=== PATIENT | female | born 1945 | race Caucasian/White ===

== ENCOUNTER 2023-02-17 17:35 | Inpatient (IN) | payer OTHER ==
[~2023-02-17] VITALS: Ht 154.9 cm; Wt 45.4 kg
[2023-02-17] MEDS: D5W 1,000 ML IV SCH (07:45)
[~2023-02-17 17:35] MED LIST: GLIPIZIDE; LOP600 PO
[2023-02-17 17:58] VITALS: BP_SYST 101; PULSE 108; RESP 20; TEMP 97.2; O2SAT 89
[2023-02-17] MEDS ORDERED: NACL 0.9% 1,000 ML IV ONE (18:15)
[2023-02-17] MEDS ORDERED: methylPREDNISolone SOD SUCC/PF 62.5 MG/ML VIAL IVP ONE (18:15)
[2023-02-17 19:25] LABS: MEAN CORPUSCULAR HGB CONC 31 % (32-36)
[2023-02-17 19:28] LABS: ALANINE AMINOTRANSFERASE 14 U/L (12-78); ALBUMIN 2.7 g/dL (3.4-4.8); ANION GAP 17 (5-15); ASPARTATE AMINOTRANSFERASE 10 U/L (10-37); CALCIUM 8.7 mg/dL (8.4-11.0); CARBON DIOXIDE 23 mmol/L (23-29); CREATININE 2.04 mg/dL (0.55-1.30); GLUCOSE 338 mg/dL (74-106); POTASSIUM 3.1 mmol/L (3.5-5.1); TOTAL BILIRUBIN 0.4 mg/dL (0.0-1.0); TOTAL PROTEIN, SERUM 7.2 g/dL (6.4-8.3); UREA NITROGEN, BLOOD 87 mg/dL (8-21)
[2023-02-17 19:33] LABS: CHLORIDE 127 mmol/L (98-107); SODIUM SERUM 167 mmol/L (136-145)
[2023-02-17 19:35] LABS: HEMATOCRIT 41.9 % (36-48); HEMOGLOBIN 13.1 g/dL (12.0-16.0); MEAN CORPUSCULAR HEMOGLOBIN 32 pg (27-31); MEAN CORPUSCULAR VOLUME 104 fL (79.0-98.0); PLATELET COUNT (AUTO) 125 K/uL (130-430); RED BLOOD CELL COUNT(AUTO) 4.03 MIL/uL (4.2-6.2); RED CELL DISTRIBUTION WIDTH 17.9 % (9.0-15.0); WHITE BLOOD COUNT (AUTO) 18.5 K/uL (4.8-10.8)
[2023-02-17] MEDS ORDERED: D5/0.45 NS 1,000 ML IV ONE (19:45)
[2023-02-17] MEDS ORDERED: cefTRIAXone 1 GM VIAL ONE (19:59)
[2023-02-17] MEDS ORDERED: cefTRIAXone 1 GM in D5W 50 ML IV ONE (20:00)
[2023-02-17 21:26] LABS: BILIRUBIN,URINE NEGATIVE (NEGATIVE); BLOOD, URINE NEGATIVE (NEGATIVE); CLARITY/URINE Slightly Cloudy (CLEAR); COLOR,URINE YELLOW (YELLOW); GLUCOSE,URINE NEGATIVE (NEGATIVE); KETONES,URINE NEGATIVE (NEGATIVE); LEUKOCYTE ESTERASE ,URINE NEGATIVE (NEGATIVE); NITRITE, URINE NEGATIVE (NEGATIVE); PROTEIN URINE 1+ (NEGATIVE); UROBILINOGEN,URINE 0.2 (0.2-1.0)
[2023-02-17 21:40] LABS: BACTERIA,URINE MODERATE /HPF (None Seen); RBC,URINE 0-3 /HPF (0-3)
[2023-02-17 21:41] LABS: CALCIUM OXALATE CRYSTALS,UR 0-10 /HPF (None Seen); COARSE GRANULAR CASTS,URINE 0-10 /LPF (None Seen); MUCUS,URINE 1+ /LPF (None Seen)
[2023-02-17 21:54] LABS: BAND % (MANUAL) 27 % (0-6); BASOPHILS % (MANUAL) 0 % (0-2); EOSINOPHILS % (MANUAL) 0 % (0-7); LYMPHOCYTES % (MANUAL) 6 % (20-46); MONOCYTES % (MANUAL) 4 % (0-11)
[2023-02-17 21:55] LABS: ANISOCYTOSIS 1+; OVALOCYTES FEW; PLATELET ESTIMATE DECREASED (ADEQUATE); TEAR DROP CELLS MODERATE
[2023-02-17] MEDS ORDERED: EZET10TA30 PO (21:58)
[2023-02-17] MEDS ORDERED: MIDO5TAB4 PO (21:58)
[2023-02-17] MEDS ORDERED: LEVO50TA8 PO (21:58)
[2023-02-17] MEDS ORDERED: MEMA10TA56 PO (21:58)
[2023-02-17] MEDS ORDERED: GLIM2TAB PO (22:00)
[2023-02-17] MEDS ORDERED: ASA81 PO (22:00)
[2023-02-17] MEDS ORDERED: DONE10TA44 PO (22:01)
[2023-02-18 00:20] VITALS: BP_SYST 100; PULSE 82; RESP 16; TEMP 98.8; O2SAT 92
[2023-02-18] MEDS ORDERED: POTASSIUM CHLORIDE 20 MEQ/PKT PACKET PO ONE (02:45)
[2023-02-18 05:51] VITALS: BP_SYST 103; PULSE 83; RESP 16; TEMP 97.4; O2SAT 100
[2023-02-18 07:00] VITALS: BP_SYST 133; PULSE 83; RESP 18; TEMP 95.8; O2SAT 98
[2023-02-18] MEDS: D5W 1,000 ML IV SCH ×2 (07:45→23:49)
[2023-02-18] MEDS ORDERED: LORazepam 2 MG/ML VIAL IVP PRN (09:15)
[2023-02-18] MEDS ORDERED: ASPIRIN 81 MG TAB.CHEW PO ONE (09:15)
[2023-02-18] MEDS ORDERED: EZETIMIBE 10 MG TABLET PO ONE (09:15)
[2023-02-18] MEDS ORDERED: GLIMEPIRIDE 2 MG TABLET PO ONE (09:15)
[2023-02-18] MEDS ORDERED: GEMFIBROZIL 600 MG TABLET (LOPID) PO ONE (09:15)
[2023-02-18] MEDS ORDERED: ACETAMINOPHEN 325 MG TABLET PO PRN ×2 (09:15→10:00)
[2023-02-18] MEDS ORDERED: LEVOTHYROXINE SODIUM 0.05 MG TABLET PO ONE (09:15)
[2023-02-18] MEDS ORDERED: NALOXONE HCL 0.4 MG/ML AMP (NARCAN) IVP PRN ×2 (09:15)
[2023-02-18] MEDS ORDERED: HYDROcodone/ACETAMIN 10-325 MG TAB PO PRN (09:15)
[2023-02-18] MEDS ORDERED: ONDANSETRON HCL 4 MG/2 ML VIAL IVP PRN (09:15)
[2023-02-18 09:54] LABS: HEMATOCRIT 41.5 % (36-48); HEMOGLOBIN 12.3 g/dL (12.0-16.0); LYMPHOCYTES # (AUTO) 0.9 K/uL (1.0-5.5); LYMPHOCYTES % (AUTO) 6.5 % (20.5-51.5); MEAN CORPUSCULAR HEMOGLOBIN 32 pg (27-31); MEAN CORPUSCULAR HGB CONC 30 % (32-36); MEAN CORPUSCULAR VOLUME 107 fL (79.0-98.0); MONOCYTES # (AUTO) 0.4 K/uL (0.0-1.0); MONOCYTES % (AUTO) 2.7 % (1.7-9.3); NEUTROPHILS # (AUTO) 12.7 K/uL (1.8-7.7); NEUTROPHILS % (AUTO) 90.8 % (40.0-70.0); PLATELET COUNT (AUTO) 107 K/uL (130-430); RED BLOOD CELL COUNT(AUTO) 3.88 MIL/uL (4.2-6.2)
[2023-02-18 09:59] LABS: RED CELL DISTRIBUTION WIDTH 19.1 % (9.0-15.0)
[2023-02-18 10:09] LABS: ALANINE AMINOTRANSFERASE 12 U/L (12-78); ALBUMIN 2.5 g/dL (3.4-4.8); ANION GAP 12 (5-15); ASPARTATE AMINOTRANSFERASE 8 U/L (10-37); CALCIUM 8.5 mg/dL (8.4-11.0); CARBON DIOXIDE 25 mmol/L (23-29); CREATININE 1.66 mg/dL (0.55-1.30); POTASSIUM 4.2 mmol/L (3.5-5.1); TOTAL BILIRUBIN 0.3 mg/dL (0.0-1.0); UREA NITROGEN, BLOOD 91 mg/dL (8-21)
[2023-02-18 10:32] LABS: SODIUM SERUM 167 mmol/L (136-145)
[2023-02-18 10:33] LABS: CHLORIDE 130 mmol/L (98-107); GLUCOSE 475 mg/dL (74-106)
[2023-02-18] MEDS ORDERED: ALBUTEROL SULFATE 0.083% 2.5 MG/3 ML VIAL.NEB INH SCH (11:00)
[2023-02-18 11:14] VITALS: PULSE 75; O2SAT 95
[2023-02-18] MEDS: IPRATROPIUM BROM 0.5 MG/2.5 ML VIAL.NEB (ATROVENT) INH SCH ×3 (11:15→23:00)
[2023-02-18] MEDS ORDERED: LEVOFLOXACIN 250 MG/D5W 50 ML IV SCH (12:00)
[2023-02-18] MEDS: INSULIN REGULAR, HUMAN 100 UNITS/ML, 3 ML VIAL (humuLIN R) SUBCUT PRN ×3 (14:49→22:49)
[2023-02-18] MEDS: MIDODRINE HCL 5 MG TABLET (PROAMATINE) PO SCH ×2 (15:21→22:45)
[2023-02-18] MEDS: CEFEPIME 2 GM in D5W 100 ML IV SCH (15:32)
[2023-02-18] MEDS: ALBUTEROL SULFATE 0.083% 2.5 MG/3 ML VIAL.NEB INH SCH (19:47)
[2023-02-18 20:00] VITALS: BP_SYST 107; PULSE 88; RESP 18; TEMP 97.7; O2SAT 96; O2SAT 98
[2023-02-18 20:19] VITALS: O2SAT 96
[2023-02-18] MEDS: DONEPEZIL HCL 5 MG TABLET (ARICEPT) PO SCH (22:44)
[2023-02-18] MEDS: MEMANTINE HCL 5 MG TABLET PO SCH (22:45)
[2023-02-19] VITALS (9 sets, daily range): BP systolic 104–133; PULSE 89–110; RESP 16–20; TEMP 96.3–98.7; O2SAT 85–95
[2023-02-19] MEDS: ALBUTEROL SULFATE 0.083% 2.5 MG/3 ML VIAL.NEB INH SCH ×4 (01:44→20:40)
[2023-02-19 06:15] LABS: BASOPHILS % (AUTO) 0.2 % (0.0-2.0); HEMATOCRIT 42.7 % (36-48); HEMOGLOBIN 12.4 g/dL (12.0-16.0); LYMPHOCYTES # (AUTO) 2.2 K/uL (1.0-5.5); LYMPHOCYTES % (AUTO) 11.1 % (20.5-51.5); MEAN CORPUSCULAR HEMOGLOBIN 32 pg (27-31); MEAN CORPUSCULAR HGB CONC 29 % (32-36); MEAN CORPUSCULAR VOLUME 109 fL (79.0-98.0); MONOCYTES # (AUTO) 1.1 K/uL (0.0-1.0); MONOCYTES % (AUTO) 5.5 % (1.7-9.3); NEUTROPHILS # (AUTO) 16.5 K/uL (1.8-7.7); NEUTROPHILS % (AUTO) 83.2 % (40.0-70.0); PLATELET COUNT (AUTO) 127 K/uL (130-430); RED BLOOD CELL COUNT(AUTO) 3.92 MIL/uL (4.2-6.2); RED CELL DISTRIBUTION WIDTH 19.4 % (9.0-15.0); WHITE BLOOD COUNT (AUTO) 19.9 K/uL (4.8-10.8)
[2023-02-19 06:44] LABS: ANION GAP 14 (5-15); CALCIUM 9.1 mg/dL (8.4-11.0); CARBON DIOXIDE 21 mmol/L (23-29); CREATININE 1.37 mg/dL (0.55-1.30); GLUCOSE 151 mg/dL (74-106); PHOSPHORUS 2.9 mg/dL (2.7-4.5); POTASSIUM 4.2 mmol/L (3.5-5.1); UREA NITROGEN, BLOOD 90 mg/dL (8-21)
[2023-02-19] MEDS: IPRATROPIUM BROM 0.5 MG/2.5 ML VIAL.NEB (ATROVENT) INH SCH ×4 (07:28→20:40)
[2023-02-19 07:37] LABS: CHLORIDE 134 mmol/L (98-107); SODIUM SERUM 169 mmol/L (136-145)
[2023-02-19] MEDS ORDERED: ASPIRIN 81 MG TAB.CHEW PO SCH (09:00)
[2023-02-19] MEDS: GEMFIBROZIL 600 MG TABLET (LOPID) PO SCH (11:14)
[2023-02-19] MEDS: MEMANTINE HCL 5 MG TABLET PO SCH ×2 (11:14→22:09)
[2023-02-19] MEDS: LEVOTHYROXINE SODIUM 0.05 MG TABLET PO SCH (11:14)
[2023-02-19] MEDS: ASPIRIN 81 MG TAB.CHEW PO SCH (11:14)
[2023-02-19] MEDS: EZETIMIBE 10 MG TABLET PO SCH (11:14)
[2023-02-19] MEDS: GLIMEPIRIDE 2 MG TABLET PO SCH (11:14)
[2023-02-19] MEDS: MIDODRINE HCL 5 MG TABLET (PROAMATINE) PO SCH ×3 (11:15→22:09)
[2023-02-19] MEDS ORDERED: D5W 500 ML IV ONE (12:00)
[2023-02-19] MEDS: INSULIN REGULAR, HUMAN 100 UNITS/ML, 3 ML VIAL (humuLIN R) SUBCUT PRN (12:22)
[2023-02-19] MEDS: CEFEPIME 2 GM in D5W 100 ML IV SCH (14:11)
[2023-02-19 14:18] LABS: ANION GAP 17 (5-15); CALCIUM 8.8 mg/dL (8.4-11.0); CARBON DIOXIDE 22 mmol/L (23-29); CREATININE 1.57 mg/dL (0.55-1.30); GLUCOSE 332 mg/dL (74-106); POTASSIUM 3.3 mmol/L (3.5-5.1); UREA NITROGEN, BLOOD 86 mg/dL (8-21)
[2023-02-19 14:31] LABS: CHLORIDE 133 mmol/L (98-107); SODIUM SERUM 172 mmol/L (136-145)
[2023-02-19] MEDS ORDERED: INSULIN GLARGINE 100 UNITS/ML, 10 ML VIAL SUBCUT SCH (21:00)
[2023-02-19] MEDS: DONEPEZIL HCL 5 MG TABLET (ARICEPT) PO SCH (22:09)
[2023-02-20] VITALS (9 sets, daily range): BP systolic 101–105; PULSE 80–108; RESP 17–20; TEMP 97–98.3; O2SAT 19–97
[2023-02-20] MEDS: ALBUTEROL SULFATE 0.083% 2.5 MG/3 ML VIAL.NEB INH SCH ×4 (01:48→19:56)
[2023-02-20] MEDS: IPRATROPIUM BROM 0.5 MG/2.5 ML VIAL.NEB (ATROVENT) INH SCH ×4 (01:48→19:56)
[2023-02-20 06:51] LABS: HEMATOCRIT 37.5 % (36-48); HEMOGLOBIN 11.6 g/dL (12.0-16.0); LYMPHOCYTES # (AUTO) 0.6 K/uL (1.0-5.5); LYMPHOCYTES % (AUTO) 3.9 % (20.5-51.5); MEAN CORPUSCULAR HEMOGLOBIN 32 pg (27-31); MEAN CORPUSCULAR HGB CONC 31 % (32-36); MEAN CORPUSCULAR VOLUME 104 fL (79.0-98.0); MONOCYTES # (AUTO) 0.8 K/uL (0.0-1.0); MONOCYTES % (AUTO) 5.4 % (1.7-9.3); NEUTROPHILS # (AUTO) 13.5 K/uL (1.8-7.7); NEUTROPHILS % (AUTO) 90.7 % (40.0-70.0); PLATELET COUNT (AUTO) 99 K/uL (130-430); RED BLOOD CELL COUNT(AUTO) 3.62 MIL/uL (4.2-6.2); RED CELL DISTRIBUTION WIDTH 18.8 % (9.0-15.0)
[2023-02-20] MEDS: INSULIN REGULAR, HUMAN 100 UNITS/ML, 3 ML VIAL (humuLIN R) SUBCUT PRN ×4 (07:20→22:00)
[2023-02-20 08:05] LABS: WHITE BLOOD COUNT (AUTO) 14.8 K/uL (4.8-10.8)
[2023-02-20] MEDS ORDERED: INSULIN GLARGINE 100 UNITS/ML, 10 ML VIAL SUBCUT ONE (08:15)
[2023-02-20] MEDS: MIDODRINE HCL 5 MG TABLET (PROAMATINE) PO SCH (10:35)
[2023-02-20] MEDS: EZETIMIBE 10 MG TABLET PO SCH (10:35)
[2023-02-20] MEDS: GEMFIBROZIL 600 MG TABLET (LOPID) PO SCH (10:35)
[2023-02-20] MEDS: LEVOTHYROXINE SODIUM 0.05 MG TABLET PO SCH (10:35)
[2023-02-20] MEDS: MEMANTINE HCL 5 MG TABLET PO SCH (10:35)
[2023-02-20] MEDS: GLIMEPIRIDE 2 MG TABLET PO SCH (10:36)
[2023-02-20] MEDS: ASPIRIN 81 MG TAB.CHEW PO SCH (10:40)
[2023-02-20] MEDS ORDERED: D10W 1,000 ML IV SCH (12:15)
[2023-02-20] MEDS: D5W 1,000 ML IV SCH (13:10)
[2023-02-20] MEDS: CEFEPIME 2 GM in D5W 100 ML IV SCH (13:29)
[2023-02-20] MEDS ORDERED: ACETAMINOPHEN 325 MG TABLET NG PRN (14:00)
[2023-02-20] MEDS: MIDODRINE HCL 5 MG TABLET (PROAMATINE) NG SCH ×2 (16:13→21:49)
[2023-02-20 18:06] LABS: ANION GAP 11 (5-15); CALCIUM 9.3 mg/dL (8.4-11.0); CARBON DIOXIDE 25 mmol/L (23-29); CREATININE 1.37 mg/dL (0.55-1.30); GLUCOSE 330 mg/dL (74-106); UREA NITROGEN, BLOOD 74 mg/dL (8-21)
[2023-02-20 18:22] LABS: CHLORIDE 130 mmol/L (98-107); SODIUM SERUM 166 mmol/L (136-145)
[2023-02-20] MEDS: DONEPEZIL HCL 5 MG TABLET (ARICEPT) NG SCH (21:49)
[2023-02-20] MEDS: MEMANTINE HCL 5 MG TABLET NG SCH (21:49)
[2023-02-20] MEDS: INSULIN GLARGINE 100 UNITS/ML, 10 ML VIAL SUBCUT SCH (21:56)
[2023-02-21] VITALS (10 sets, daily range): BP systolic 100–118; PULSE 94–104; RESP 17–19; TEMP 96.8–97.9; O2SAT 93–97
[2023-02-21] MEDS: D5W 1,000 ML IV SCH ×2 (01:43→15:25)
[2023-02-21] MEDS: ALBUTEROL SULFATE 0.083% 2.5 MG/3 ML VIAL.NEB INH SCH ×4 (02:08→20:00)
[2023-02-21] MEDS: IPRATROPIUM BROM 0.5 MG/2.5 ML VIAL.NEB (ATROVENT) INH SCH ×4 (02:08→20:00)
[2023-02-21] MEDS: INSULIN REGULAR, HUMAN 100 UNITS/ML, 3 ML VIAL (humuLIN R) SUBCUT PRN ×2 (06:26→13:19)
[2023-02-21 08:09] LABS: BASOPHILS % (AUTO) 0.1 % (0.0-2.0); EOSINOPHILS % (AUTO) 0.2 % (0.0-4.0); HEMATOCRIT 33.1 % (36-48); HEMOGLOBIN 10.4 g/dL (12.0-16.0); LYMPHOCYTES % (AUTO) 7.7 % (20.5-51.5); MEAN CORPUSCULAR HEMOGLOBIN 32 pg (27-31); MEAN CORPUSCULAR HGB CONC 31 % (32-36); MEAN CORPUSCULAR VOLUME 103 fL (79.0-98.0); MONOCYTES # (AUTO) 0.5 K/uL (0.0-1.0); MONOCYTES % (AUTO) 3.8 % (1.7-9.3); NEUTROPHILS # (AUTO) 11.7 K/uL (1.8-7.7); NEUTROPHILS % (AUTO) 88.2 % (40.0-70.0); PLATELET COUNT (AUTO) 73 K/uL (130-430); RED BLOOD CELL COUNT(AUTO) 3.22 MIL/uL (4.2-6.2); RED CELL DISTRIBUTION WIDTH 18.5 % (9.0-15.0); WHITE BLOOD COUNT (AUTO) 13.3 K/uL (4.8-10.8)
[2023-02-21 08:33] LABS: ANION GAP 13 (5-15); CALCIUM 8.8 mg/dL (8.4-11.0); CARBON DIOXIDE 25 mmol/L (23-29); CHLORIDE 119 mmol/L (98-107); CREATININE 1.25 mg/dL (0.55-1.30); GLUCOSE 367 mg/dL (74-106); POTASSIUM 3.2 mmol/L (3.5-5.1); SODIUM SERUM 157 mmol/L (136-145); UREA NITROGEN, BLOOD 58 mg/dL (8-21)
[2023-02-21] MEDS ORDERED: POTASSIUM CHLORIDE 20 MEQ/PKT PACKET PO ONE (09:15)
[2023-02-21] MEDS: INSULIN GLARGINE 100 UNITS/ML, 10 ML VIAL SUBCUT SCH ×2 (09:48→21:00)
[2023-02-21] MEDS: ASPIRIN 81 MG TAB.CHEW NG SCH (09:57)
[2023-02-21] MEDS: EZETIMIBE 10 MG TABLET NG SCH (10:00)
[2023-02-21] MEDS: MIDODRINE HCL 5 MG TABLET (PROAMATINE) NG SCH ×3 (10:01→22:27)
[2023-02-21] MEDS: MEMANTINE HCL 5 MG TABLET NG SCH ×2 (10:02→22:27)
[2023-02-21] MEDS: LEVOTHYROXINE SODIUM 0.05 MG TABLET NG SCH (10:05)
[2023-02-21] MEDS: GLIMEPIRIDE 2 MG TABLET NG SCH (10:06)
[2023-02-21] MEDS: GEMFIBROZIL 600 MG TABLET (LOPID) NG SCH (10:08)
[2023-02-21] MEDS ORDERED: KCL 20 mEq in 100 mL (PREMIX) 100 ML IV SCH (10:30)
[2023-02-21 16:50] LABS: ANION GAP 10 (5-15); CALCIUM 8.9 mg/dL (8.4-11.0); CARBON DIOXIDE 27 mmol/L (23-29); CHLORIDE 119 mmol/L (98-107); CREATININE 1.15 mg/dL (0.55-1.30); GLUCOSE 206 mg/dL (74-106); POTASSIUM 3.8 mmol/L (3.5-5.1); SODIUM SERUM 156 mmol/L (136-145); UREA NITROGEN, BLOOD 51 mg/dL (8-21)
[2023-02-21] MEDS: CEFEPIME 2 GM in D5W 100 ML IV SCH (16:57)
[2023-02-21] MEDS: DONEPEZIL HCL 5 MG TABLET (ARICEPT) NG SCH (22:27)
[2023-02-22] VITALS (10 sets, daily range): BP systolic 92–122; PULSE 67–103; RESP 17–19; TEMP 97.2–98.6; O2SAT 92–97
[2023-02-22] MEDS: ALBUTEROL SULFATE 0.083% 2.5 MG/3 ML VIAL.NEB INH SCH ×4 (01:39→20:57)
[2023-02-22] MEDS: IPRATROPIUM BROM 0.5 MG/2.5 ML VIAL.NEB (ATROVENT) INH SCH ×4 (01:39→20:57)
[2023-02-22] MEDS: INSULIN REGULAR, HUMAN 100 UNITS/ML, 3 ML VIAL (humuLIN R) SUBCUT PRN ×2 (06:10→13:16)
[2023-02-22 06:35] LABS: ERYTHROCYTE SEDIMENTATION RATE 106 MM/HR (0-20)
[2023-02-22 06:39] LABS: BASOPHILS % (AUTO) 0.1 % (0.0-2.0); EOSINOPHILS # (AUTO) 0.1 K/uL (0.0-0.4); EOSINOPHILS % (AUTO) 0.4 % (0.0-4.0); HEMATOCRIT 30.9 % (36-48); HEMOGLOBIN 9.9 g/dL (12.0-16.0); LYMPHOCYTES # (AUTO) 0.9 K/uL (1.0-5.5); MEAN CORPUSCULAR HEMOGLOBIN 32 pg (27-31); MEAN CORPUSCULAR HGB CONC 32 % (32-36); MEAN CORPUSCULAR VOLUME 101 fL (79.0-98.0); MONOCYTES # (AUTO) 0.5 K/uL (0.0-1.0); MONOCYTES % (AUTO) 2.7 % (1.7-9.3); NEUTROPHILS % (AUTO) 91.8 % (40.0-70.0); PLATELET COUNT (AUTO) 61 K/uL (130-430); RED BLOOD CELL COUNT(AUTO) 3.05 MIL/uL (4.2-6.2); WHITE BLOOD COUNT (AUTO) 17.5 K/uL (4.8-10.8)
[2023-02-22 07:10] LABS: ALANINE AMINOTRANSFERASE 14 U/L (12-78); ALBUMIN 1.4 g/dL (3.4-4.8); ANION GAP 8 (5-15); ASPARTATE AMINOTRANSFERASE 17 U/L (10-37); CALCIUM 8.2 mg/dL (8.4-11.0); CARBON DIOXIDE 27 mmol/L (23-29); CHLORIDE 114 mmol/L (98-107); CREATININE 0.97 mg/dL (0.55-1.30); GLUCOSE 206 mg/dL (74-106); PHOSPHORUS 1.7 mg/dL (2.7-4.5); POTASSIUM 3.2 mmol/L (3.5-5.1); SODIUM SERUM 149 mmol/L (136-145); TOTAL BILIRUBIN 0.4 mg/dL (0.0-1.0); TOTAL PROTEIN, SERUM 5.6 g/dL (6.4-8.3); UREA NITROGEN, BLOOD 43 mg/dL (8-21)
[2023-02-22] MEDS ORDERED: POTASSIUM CHLORIDE 20 MEQ/PKT PACKET NG ONE (09:30)
[2023-02-22] MEDS: LEVOTHYROXINE SODIUM 0.05 MG TABLET NG SCH (09:53)
[2023-02-22] MEDS: GEMFIBROZIL 600 MG TABLET (LOPID) NG SCH (09:53)
[2023-02-22] MEDS: ASPIRIN 81 MG TAB.CHEW NG SCH (09:53)
[2023-02-22] MEDS: MEMANTINE HCL 5 MG TABLET NG SCH ×2 (09:54→20:22)
[2023-02-22] MEDS: EZETIMIBE 10 MG TABLET NG SCH (09:54)
[2023-02-22] MEDS: MIDODRINE HCL 5 MG TABLET (PROAMATINE) NG SCH ×3 (09:54→20:22)
[2023-02-22] MEDS: GLIMEPIRIDE 2 MG TABLET NG SCH (09:54)
[2023-02-22] MEDS: INSULIN GLARGINE 100 UNITS/ML, 10 ML VIAL SUBCUT SCH ×2 (10:01→21:08)
[2023-02-22] MEDS ORDERED: K PHOS 30 MM in NS 250 ML IV ONE (10:30)
[2023-02-22] MEDS: FLUCONAZOLE 100 mg/ NS 50 ML IV SCH (13:13)
[2023-02-22] MEDS: CEFEPIME 2 GM in D5W 100 ML IV SCH (14:31)
[2023-02-22 17:39] LABS: ANION GAP 7 (5-15); CALCIUM 7.5 mg/dL (8.4-11.0); CARBON DIOXIDE 27 mmol/L (23-29); CHLORIDE 111 mmol/L (98-107); CREATININE 0.92 mg/dL (0.55-1.30); GLUCOSE 209 mg/dL (74-106); POTASSIUM 4.3 mmol/L (3.5-5.1); SODIUM SERUM 145 mmol/L (136-145); UREA NITROGEN, BLOOD 43 mg/dL (8-21)
[2023-02-22] MEDS: D5W 1,000 ML IV SCH ×2 (18:05→20:24)
[2023-02-22] MEDS: DONEPEZIL HCL 5 MG TABLET (ARICEPT) NG SCH (20:22)
[2023-02-23] VITALS (10 sets, daily range): BP systolic 85–121; PULSE 77–106; RESP 16–20; TEMP 97.3–98.4; O2SAT 91–100
[2023-02-23] MEDS: ALBUTEROL SULFATE 0.083% 2.5 MG/3 ML VIAL.NEB INH SCH ×4 (01:35→20:07)
[2023-02-23] MEDS: IPRATROPIUM BROM 0.5 MG/2.5 ML VIAL.NEB (ATROVENT) INH SCH ×4 (01:35→20:07)
[2023-02-23] MEDS: INSULIN REGULAR, HUMAN 100 UNITS/ML, 3 ML VIAL (humuLIN R) SUBCUT PRN (06:23)
[2023-02-23] MEDS: D5W 1,000 ML IV SCH ×2 (06:26→10:29)
[2023-02-23 07:56] LABS: BASOPHILS % (AUTO) 0.1 % (0.0-2.0); EOSINOPHILS # (AUTO) 0.1 K/uL (0.0-0.4); EOSINOPHILS % (AUTO) 0.5 % (0.0-4.0); HEMATOCRIT 28.8 % (36-48); HEMOGLOBIN 9.2 g/dL (12.0-16.0); LYMPHOCYTES # (AUTO) 0.7 K/uL (1.0-5.5); LYMPHOCYTES % (AUTO) 3.8 % (20.5-51.5); MEAN CORPUSCULAR HEMOGLOBIN 32 pg (27-31); MEAN CORPUSCULAR HGB CONC 32 % (32-36); MEAN CORPUSCULAR VOLUME 101 fL (79.0-98.0); MONOCYTES # (AUTO) 0.7 K/uL (0.0-1.0); MONOCYTES % (AUTO) 3.5 % (1.7-9.3); NEUTROPHILS # (AUTO) 18.2 K/uL (1.8-7.7); NEUTROPHILS % (AUTO) 92.1 % (40.0-70.0); PLATELET COUNT (AUTO) 70 K/uL (130-430); RED BLOOD CELL COUNT(AUTO) 2.85 MIL/uL (4.2-6.2); RED CELL DISTRIBUTION WIDTH 17.6 % (9.0-15.0); WHITE BLOOD COUNT (AUTO) 19.7 K/uL (4.8-10.8)
[2023-02-23 08:01] LABS: ALANINE AMINOTRANSFERASE 26 U/L (12-78); ALBUMIN 1.2 g/dL (3.4-4.8); ANION GAP 8 (5-15); ASPARTATE AMINOTRANSFERASE 24 U/L (10-37); CARBON DIOXIDE 27 mmol/L (23-29); CHLORIDE 109 mmol/L (98-107); CREATININE 0.81 mg/dL (0.55-1.30); GLUCOSE 226 mg/dL (74-106); PHOSPHORUS 4.3 mg/dL (2.7-4.5); POTASSIUM 3.8 mmol/L (3.5-5.1); SODIUM SERUM 144 mmol/L (136-145); TOTAL BILIRUBIN 0.3 mg/dL (0.0-1.0); TOTAL PROTEIN, SERUM 5.3 g/dL (6.4-8.3); UREA NITROGEN, BLOOD 34 mg/dL (8-21)
[2023-02-23 08:17] LABS: ERYTHROCYTE SEDIMENTATION RATE 86 MM/HR (0-20)
[2023-02-23] MEDS: INSULIN GLARGINE 100 UNITS/ML, 10 ML VIAL SUBCUT SCH ×2 (10:26→21:00)
[2023-02-23] MEDS: GEMFIBROZIL 600 MG TABLET (LOPID) NG SCH (10:27)
[2023-02-23] MEDS: LEVOTHYROXINE SODIUM 0.05 MG TABLET NG SCH (10:27)
[2023-02-23] MEDS: EZETIMIBE 10 MG TABLET NG SCH (10:27)
[2023-02-23] MEDS: GLIMEPIRIDE 2 MG TABLET NG SCH (10:28)
[2023-02-23] MEDS: MEMANTINE HCL 5 MG TABLET NG SCH ×2 (10:28→21:00)
[2023-02-23] MEDS: ASPIRIN 81 MG TAB.CHEW NG SCH (10:28)
[2023-02-23] MEDS ORDERED: MIDODRINE HCL 5 MG TABLET (PROAMATINE) NG ONE (10:45)
[2023-02-23 10:56] LABS: PROTHROMBIN TIME 10.7 SECS (9.5-12.5)
[2023-02-23] MEDS: FLUCONAZOLE 100 mg/ NS 50 ML IV SCH (13:53)
[2023-02-23] MEDS ORDERED: MENTHOL/ZINC OXIDE 113 GM OINT. TP PRN (14:15)
[2023-02-23] MEDS: MIDODRINE HCL 5 MG TABLET (PROAMATINE) NG SCH ×2 (15:00→21:00)
[2023-02-23] MEDS: metroNIDAZOLE 250 mg/NS 50 ML IV SCH ×2 (15:14→21:24)
[2023-02-23] MEDS ORDERED: BALSAM PERU/CASTOR OIL 56.7 GM OINT...G. TP ONE (15:30)
[2023-02-23] MEDS: CEFEPIME 2 GM in D5W 100 ML IV SCH (16:39)
[2023-02-23] MEDS ORDERED: DEXTROSE 50% JECT 50 ML DISP.SYRIN IVP ONE (17:45)
[2023-02-23] MEDS: DONEPEZIL HCL 5 MG TABLET (ARICEPT) NG SCH (21:00)
[2023-02-24] VITALS (10 sets, daily range): BP systolic 107–165; PULSE 56–100; RESP 16–19; TEMP 96.5–98.8; O2SAT 93–98
[2023-02-24] MEDS: ALBUTEROL SULFATE 0.083% 2.5 MG/3 ML VIAL.NEB INH SCH ×4 (01:32→19:55)
[2023-02-24] MEDS: IPRATROPIUM BROM 0.5 MG/2.5 ML VIAL.NEB (ATROVENT) INH SCH ×4 (01:32→19:55)
[2023-02-24] MEDS ORDERED: DEXTROSE 50% JECT 50 ML DISP.SYRIN ONE (05:58)
[2023-02-24] MEDS: metroNIDAZOLE 250 mg/NS 50 ML IV SCH ×3 (06:13→21:17)
[2023-02-24] MEDS ORDERED: D5W 1,000 ML IV PRN (06:15)
[2023-02-24] MEDS ORDERED: GLUCOSE (DEXTROSE) ORAL GEL -Adults PO PRN (06:15)
[2023-02-24] MEDS: D5W 1,000 ML IV SCH (06:25)
[2023-02-24 06:38] LABS: ERYTHROCYTE SEDIMENTATION RATE 93 MM/HR (0-20)
[2023-02-24] MEDS: DEXTROSE 50% JECT 50 ML DISP.SYRIN IVP PRN (06:41)
[2023-02-24 06:42] LABS: BASOPHILS % (AUTO) 0.2 % (0.0-2.0); EOSINOPHILS # (AUTO) 0.1 K/uL (0.0-0.4); EOSINOPHILS % (AUTO) 0.7 % (0.0-4.0); HEMATOCRIT 28.8 % (36-48); HEMOGLOBIN 9.2 g/dL (12.0-16.0); LYMPHOCYTES # (AUTO) 0.9 K/uL (1.0-5.5); LYMPHOCYTES % (AUTO) 4.8 % (20.5-51.5); MEAN CORPUSCULAR HEMOGLOBIN 32 pg (27-31); MEAN CORPUSCULAR HGB CONC 32 % (32-36); MEAN CORPUSCULAR VOLUME 100 fL (79.0-98.0); MONOCYTES # (AUTO) 0.7 K/uL (0.0-1.0); MONOCYTES % (AUTO) 3.7 % (1.7-9.3); NEUTROPHILS # (AUTO) 16.8 K/uL (1.8-7.7); NEUTROPHILS % (AUTO) 90.6 % (40.0-70.0); PLATELET COUNT (AUTO) 91 K/uL (130-430); RED BLOOD CELL COUNT(AUTO) 2.88 MIL/uL (4.2-6.2); WHITE BLOOD COUNT (AUTO) 18.5 K/uL (4.8-10.8)
[2023-02-24 07:16] LABS: PROTHROMBIN TIME 10.5 SECS (9.5-12.5)
[2023-02-24 07:24] LABS: ALANINE AMINOTRANSFERASE 28 U/L (12-78); ALBUMIN 1.3 g/dL (3.4-4.8); ANION GAP 6 (5-15); ASPARTATE AMINOTRANSFERASE 27 U/L (10-37); CARBON DIOXIDE 28 mmol/L (23-29); CHLORIDE 112 mmol/L (98-107); CREATININE 0.78 mg/dL (0.55-1.30); POTASSIUM 3.2 mmol/L (3.5-5.1); SODIUM SERUM 146 mmol/L (136-145); TOTAL BILIRUBIN 0.3 mg/dL (0.0-1.0); TOTAL PROTEIN, SERUM 5.5 g/dL (6.4-8.3); UREA NITROGEN, BLOOD 24 mg/dL (8-21)
[2023-02-24 07:48] LABS: CALCIUM 6.9 mg/dL (8.4-11.0); GLUCOSE 43 mg/dL (74-106)
[2023-02-24] MEDS: EZETIMIBE 10 MG TABLET NG SCH (09:00)
[2023-02-24] MEDS: MEMANTINE HCL 5 MG TABLET NG SCH ×2 (09:00→20:55)
[2023-02-24] MEDS: LEVOTHYROXINE SODIUM 0.05 MG TABLET NG SCH (09:00)
[2023-02-24] MEDS: ASPIRIN 81 MG TAB.CHEW NG SCH (09:00)
[2023-02-24] MEDS: BALSAM PERU/CASTOR OIL 56.7 GM OINT...G. TP SCH (09:00)
[2023-02-24] MEDS: GEMFIBROZIL 600 MG TABLET (LOPID) NG SCH (09:00)
[2023-02-24] MEDS: INSULIN GLARGINE 100 UNITS/ML, 10 ML VIAL SUBCUT SCH ×2 (09:00→21:14)
[2023-02-24] MEDS: GLIMEPIRIDE 2 MG TABLET NG SCH (09:00)
[2023-02-24] MEDS: MIDODRINE HCL 5 MG TABLET (PROAMATINE) NG SCH ×3 (09:00→20:53)
[2023-02-24] MEDS ORDERED: MIDAZOLAM HCL 5 MG/5 ML VIAL ONE (09:39)
[2023-02-24] MEDS ORDERED: SIMETHICONE 40 MG/0.6 ML ML ONE (09:39)
[2023-02-24] MEDS ORDERED: fentaNYL CITRATE/PF 100 MCG/2 ML AMP ONE (09:39)
[2023-02-24] MEDS: CEFEPIME 2 GM in D5W 100 ML IV SCH (14:22)
[2023-02-24] MEDS: FLUCONAZOLE 100 mg/ NS 50 ML IV SCH (14:23)
[2023-02-24] MEDS: DONEPEZIL HCL 5 MG TABLET (ARICEPT) NG SCH (20:54)
[2023-02-24] MEDS: ACETAMINOPHEN 325 MG TABLET NG PRN (20:54)
[2023-02-25] VITALS (12 sets, daily range): BP systolic 113–126; PULSE 74–90; RESP 19–20; TEMP 97.9–98.1; O2SAT 78–100
[2023-02-25] MEDS: D5W 1,000 ML IV SCH ×2 (00:19→11:32)
[2023-02-25] MEDS: ALBUTEROL SULFATE 0.083% 2.5 MG/3 ML VIAL.NEB INH SCH ×4 (01:27→20:10)
[2023-02-25] MEDS: IPRATROPIUM BROM 0.5 MG/2.5 ML VIAL.NEB (ATROVENT) INH SCH ×4 (01:27→20:09)
[2023-02-25] MEDS: metroNIDAZOLE 250 mg/NS 50 ML IV SCH ×3 (05:36→22:11)
[2023-02-25] MEDS: DEXTROSE 50% JECT 50 ML DISP.SYRIN IVP PRN (06:18)
[2023-02-25 07:03] LABS: ALANINE AMINOTRANSFERASE 22 U/L (12-78); ALBUMIN 1.2 g/dL (3.4-4.8); ANION GAP 9 (5-15); ASPARTATE AMINOTRANSFERASE 16 U/L (10-37); CARBON DIOXIDE 27 mmol/L (23-29); CHLORIDE 112 mmol/L (98-107); CREATININE 0.75 mg/dL (0.55-1.30); GLUCOSE 66 mg/dL (74-106); PHOSPHORUS 3.3 mg/dL (2.7-4.5); SODIUM SERUM 148 mmol/L (136-145); TOTAL BILIRUBIN 0.2 mg/dL (0.0-1.0); TOTAL PROTEIN, SERUM 5.2 g/dL (6.4-8.3); UREA NITROGEN, BLOOD 20 mg/dL (8-21)
[2023-02-25 07:11] LABS: BASOPHILS % (AUTO) 0.2 % (0.0-2.0); EOSINOPHILS # (AUTO) 0.2 K/uL (0.0-0.4); EOSINOPHILS % (AUTO) 1.6 % (0.0-4.0); HEMATOCRIT 26.7 % (36-48); HEMOGLOBIN 8.6 g/dL (12.0-16.0); LYMPHOCYTES # (AUTO) 1.1 K/uL (1.0-5.5); LYMPHOCYTES % (AUTO) 9.6 % (20.5-51.5); MEAN CORPUSCULAR HEMOGLOBIN 32 pg (27-31); MEAN CORPUSCULAR HGB CONC 32 % (32-36); MEAN CORPUSCULAR VOLUME 100 fL (79.0-98.0); MONOCYTES # (AUTO) 0.5 K/uL (0.0-1.0); MONOCYTES % (AUTO) 4.6 % (1.7-9.3); PLATELET COUNT (AUTO) 100 K/uL (130-430); RED BLOOD CELL COUNT(AUTO) 2.66 MIL/uL (4.2-6.2); RED CELL DISTRIBUTION WIDTH 16.8 % (9.0-15.0); WHITE BLOOD COUNT (AUTO) 11.9 K/uL (4.8-10.8)
[2023-02-25 07:14] LABS: CALCIUM 6.8 mg/dL (8.4-11.0); POTASSIUM 2.8 mmol/L (3.5-5.1)
[2023-02-25 07:59] LABS: ERYTHROCYTE SEDIMENTATION RATE 68 MM/HR (0-20)
[2023-02-25 08:40] LABS: ANISOCYTOSIS 1+
[2023-02-25] MEDS: ASPIRIN 81 MG TAB.CHEW NG SCH (09:00)
[2023-02-25] MEDS: MIDODRINE HCL 5 MG TABLET (PROAMATINE) NG SCH ×3 (09:00→20:49)
[2023-02-25] MEDS: MEMANTINE HCL 5 MG TABLET NG SCH ×2 (09:00→20:48)
[2023-02-25] MEDS: GEMFIBROZIL 600 MG TABLET (LOPID) NG SCH (09:00)
[2023-02-25] MEDS: GLIMEPIRIDE 2 MG TABLET NG SCH (09:01)
[2023-02-25] MEDS: EZETIMIBE 10 MG TABLET NG SCH (09:01)
[2023-02-25] MEDS: LEVOTHYROXINE SODIUM 0.05 MG TABLET NG SCH (09:01)
[2023-02-25] MEDS: INSULIN GLARGINE 100 UNITS/ML, 10 ML VIAL SUBCUT SCH ×2 (09:05→21:02)
[2023-02-25] MEDS: BALSAM PERU/CASTOR OIL 56.7 GM OINT...G. TP SCH (09:07)
[2023-02-25] MEDS: INSULIN REGULAR, HUMAN 100 UNITS/ML, 3 ML VIAL (humuLIN R) SUBCUT PRN (11:41)
[2023-02-25] MEDS ORDERED: CALCIUM GLUC 2 GM/100ML-NACL 100 ML IV ONE (12:00)
[2023-02-25] MEDS: FLUCONAZOLE 100 mg/ NS 50 ML IV SCH (13:10)
[2023-02-25] MEDS: CEFEPIME 2 GM in D5W 100 ML IV SCH (14:21)
[2023-02-25] MEDS ORDERED: POTASSIUM CHLORIDE 40 MEQ in NS 250 ML IV ONE (15:00)
[2023-02-25] MEDS: ACETYLCYSTEINE 10% 4 ML VIAL (RT) INH SCH (20:10)
[2023-02-25] MEDS: DONEPEZIL HCL 5 MG TABLET (ARICEPT) NG SCH (20:49)
[2023-02-26] VITALS (12 sets, daily range): BP systolic 113–126; PULSE 80–102; RESP 18–22; TEMP 97–99; O2SAT 94–100
[2023-02-26] MEDS: ACETAMINOPHEN 325 MG TABLET NG PRN (00:56)
[2023-02-26] MEDS: ALBUTEROL SULFATE 0.083% 2.5 MG/3 ML VIAL.NEB INH SCH ×7 (01:34→23:20)
[2023-02-26] MEDS: ACETYLCYSTEINE 10% 4 ML VIAL (RT) INH SCH ×7 (01:35→23:20)
[2023-02-26] MEDS: IPRATROPIUM BROM 0.5 MG/2.5 ML VIAL.NEB (ATROVENT) INH SCH ×7 (01:35→23:20)
[2023-02-26] MEDS: D5W 1,000 ML IV SCH ×3 (03:13→23:50)
[2023-02-26 05:34] LABS: ANION GAP 11 (5-15); CALCIUM 7.7 mg/dL (8.4-11.0); CARBON DIOXIDE 22 mmol/L (23-29); CHLORIDE 109 mmol/L (98-107); CREATININE 0.71 mg/dL (0.55-1.30); GLUCOSE 138 mg/dL (74-106); POTASSIUM 3.1 mmol/L (3.5-5.1); SODIUM SERUM 142 mmol/L (136-145); UREA NITROGEN, BLOOD 17 mg/dL (8-21)
[2023-02-26] MEDS: metroNIDAZOLE 250 mg/NS 50 ML IV SCH ×3 (05:40→22:10)
[2023-02-26 07:21] LABS: BASOPHILS % (AUTO) 0.2 % (0.0-2.0); EOSINOPHILS # (AUTO) 0.2 K/uL (0.0-0.4); HEMATOCRIT 27.9 % (36-48); HEMOGLOBIN 8.8 g/dL (12.0-16.0); LYMPHOCYTES # (AUTO) 1.1 K/uL (1.0-5.5); LYMPHOCYTES % (AUTO) 6.5 % (20.5-51.5); MEAN CORPUSCULAR HEMOGLOBIN 32 pg (27-31); MEAN CORPUSCULAR HGB CONC 32 % (32-36); MEAN CORPUSCULAR VOLUME 101 fL (79.0-98.0); MONOCYTES # (AUTO) 0.7 K/uL (0.0-1.0); MONOCYTES % (AUTO) 4.4 % (1.7-9.3); NEUTROPHILS # (AUTO) 14.3 K/uL (1.8-7.7); NEUTROPHILS % (AUTO) 87.9 % (40.0-70.0); PLATELET COUNT (AUTO) 156 K/uL (130-430); RED BLOOD CELL COUNT(AUTO) 2.76 MIL/uL (4.2-6.2); RED CELL DISTRIBUTION WIDTH 16.3 % (9.0-15.0); WHITE BLOOD COUNT (AUTO) 16.3 K/uL (4.8-10.8)
[2023-02-26 07:44] LABS: ERYTHROCYTE SEDIMENTATION RATE 71 MM/HR (0-20)
[2023-02-26] MEDS: ASPIRIN 81 MG TAB.CHEW NG SCH (10:26)
[2023-02-26] MEDS: GLIMEPIRIDE 2 MG TABLET NG SCH (10:26)
[2023-02-26] MEDS: LEVOTHYROXINE SODIUM 0.05 MG TABLET NG SCH (10:26)
[2023-02-26] MEDS: EZETIMIBE 10 MG TABLET NG SCH (10:26)
[2023-02-26] MEDS: GEMFIBROZIL 600 MG TABLET (LOPID) NG SCH (10:26)
[2023-02-26] MEDS: MEMANTINE HCL 5 MG TABLET NG SCH ×2 (10:26→22:27)
[2023-02-26] MEDS: MIDODRINE HCL 5 MG TABLET (PROAMATINE) NG SCH ×3 (10:26→22:27)
[2023-02-26] MEDS: INSULIN GLARGINE 100 UNITS/ML, 10 ML VIAL SUBCUT SCH ×2 (10:34→21:00)
[2023-02-26] MEDS: INSULIN REGULAR, HUMAN 100 UNITS/ML, 3 ML VIAL (humuLIN R) SUBCUT PRN (11:51)
[2023-02-26] MEDS: BALSAM PERU/CASTOR OIL 56.7 GM OINT...G. TP SCH (13:15)
[2023-02-26] MEDS: FLUCONAZOLE 100 mg/ NS 50 ML IV SCH (14:07)
[2023-02-26] MEDS: CEFEPIME 2 GM in D5W 100 ML IV SCH (15:22)
[2023-02-26] MEDS: HYDROcodone/ACETAMIN 5-325 MG TAB (NORCO/ VICODIN) PO PRN (18:10)
[2023-02-26] MEDS ORDERED: POTASSIUM CHLORIDE 20 MEQ TAB.PRT.SR GT ONE (19:45)
[2023-02-26] MEDS: DONEPEZIL HCL 5 MG TABLET (ARICEPT) NG SCH (22:27)
[2023-02-26] MEDS: DEXTROSE 50% JECT 50 ML DISP.SYRIN IVP PRN (22:28)
[2023-02-27] VITALS (34 sets, daily range): BP systolic 101–129; PULSE 78–109; RESP 14–26; TEMP 97.6–99.3; O2SAT 82–100
[2023-02-27] MEDS: ACETYLCYSTEINE 10% 4 ML VIAL (RT) INH SCH ×6 (03:25→23:10)
[2023-02-27] MEDS: ALBUTEROL SULFATE 0.083% 2.5 MG/3 ML VIAL.NEB INH SCH ×6 (03:25→23:10)
[2023-02-27] MEDS: IPRATROPIUM BROM 0.5 MG/2.5 ML VIAL.NEB (ATROVENT) INH SCH ×6 (03:25→23:10)
[2023-02-27] MEDS: metroNIDAZOLE 250 mg/NS 50 ML IV SCH ×3 (05:58→21:04)
[2023-02-27 06:21] LABS: BASOPHILS % (AUTO) 0.1 % (0.0-2.0); EOSINOPHILS # (AUTO) 0.1 K/uL (0.0-0.4); EOSINOPHILS % (AUTO) 0.7 % (0.0-4.0); HEMATOCRIT 29.4 % (36-48); HEMOGLOBIN 9.4 g/dL (12.0-16.0); LYMPHOCYTES # (AUTO) 0.9 K/uL (1.0-5.5); LYMPHOCYTES % (AUTO) 4.4 % (20.5-51.5); MEAN CORPUSCULAR HEMOGLOBIN 32 pg (27-31); MEAN CORPUSCULAR HGB CONC 32 % (32-36); MEAN CORPUSCULAR VOLUME 99 fL (79.0-98.0); MONOCYTES # (AUTO) 0.7 K/uL (0.0-1.0); MONOCYTES % (AUTO) 3.8 % (1.7-9.3); NEUTROPHILS # (AUTO) 17.8 K/uL (1.8-7.7); PLATELET COUNT (AUTO) 251 K/uL (130-430); RED BLOOD CELL COUNT(AUTO) 2.96 MIL/uL (4.2-6.2); RED CELL DISTRIBUTION WIDTH 16.4 % (9.0-15.0); WHITE BLOOD COUNT (AUTO) 19.5 K/uL (4.8-10.8)
[2023-02-27 06:49] LABS: ANION GAP 11 (5-15); CALCIUM 7.8 mg/dL (8.4-11.0); CARBON DIOXIDE 26 mmol/L (23-29); CHLORIDE 107 mmol/L (98-107); CREATININE 0.73 mg/dL (0.55-1.30); GLUCOSE 118 mg/dL (74-106); POTASSIUM 3.5 mmol/L (3.5-5.1); SODIUM SERUM 144 mmol/L (136-145); UREA NITROGEN, BLOOD 16 mg/dL (8-21)
[2023-02-27 07:44] LABS: ERYTHROCYTE SEDIMENTATION RATE 87 MM/HR (0-20)
[2023-02-27] MEDS: INSULIN GLARGINE 100 UNITS/ML, 10 ML VIAL SUBCUT SCH ×2 (08:55→21:00)
[2023-02-27] MEDS: MEMANTINE HCL 5 MG TABLET NG SCH ×2 (08:56→21:05)
[2023-02-27] MEDS: GEMFIBROZIL 600 MG TABLET (LOPID) NG SCH (08:56)
[2023-02-27] MEDS: LEVOTHYROXINE SODIUM 0.05 MG TABLET NG SCH (08:56)
[2023-02-27] MEDS: GLIMEPIRIDE 2 MG TABLET NG SCH (08:56)
[2023-02-27] MEDS: EZETIMIBE 10 MG TABLET NG SCH (08:56)
[2023-02-27] MEDS: ASPIRIN 81 MG TAB.CHEW NG SCH (08:56)
[2023-02-27] MEDS ORDERED: CALCIUM GLUC 2 GM/100ML-NACL 100 ML IV ONE (10:30)
[2023-02-27] MEDS: MIDODRINE HCL 5 MG TABLET (PROAMATINE) NG SCH ×3 (11:01→21:06)
[2023-02-27] MEDS: FLUCONAZOLE 100 mg/ NS 50 ML IV SCH (12:22)
[2023-02-27 14:22] LABS: ABG O2 SAT% ESTIMATE 96.4 % (94.0-100.0); BLOOD GAS BASE EXCESS 1.1 mmol/L (-3.0-3.0); BLOOD GAS HCO3 24.9 mmol/L (21.0-27.0); BLOOD GAS PCO2 37.1 mmHg (35.0-45.0); BLOOD GAS PH 7.444 (7.350-7.450); BLOOD GAS PO2 81.2 mmHg (75.0-100.0)
[2023-02-27 14:24] LABS: ALLEN'S TEST POSITIVE (P)
[2023-02-27] MEDS: BALSAM PERU/CASTOR OIL 56.7 GM OINT...G. TP SCH (14:34)
[2023-02-27] MEDS: DEXTROSE 50% JECT 50 ML DISP.SYRIN IVP PRN (17:45)
[2023-02-27] MEDS: HYDROcodone/ACETAMIN 5-325 MG TAB (NORCO/ VICODIN) PO PRN (21:04)
[2023-02-27] MEDS: DONEPEZIL HCL 5 MG TABLET (ARICEPT) NG SCH (21:05)
[2023-02-28] VITALS (30 sets, daily range): BP systolic 90–155; PULSE 76–118; RESP 14–29; TEMP 96.8–99; O2SAT 89–98
[2023-02-28] MEDS: ACETYLCYSTEINE 10% 4 ML VIAL (RT) INH SCH ×6 (03:38→23:31)
[2023-02-28] MEDS: ALBUTEROL SULFATE 0.083% 2.5 MG/3 ML VIAL.NEB INH SCH ×6 (03:38→23:31)
[2023-02-28] MEDS: IPRATROPIUM BROM 0.5 MG/2.5 ML VIAL.NEB (ATROVENT) INH SCH ×6 (03:38→23:31)
[2023-02-28 05:10] LABS: ERYTHROCYTE SEDIMENTATION RATE 81 MM/HR (0-20)
[2023-02-28 05:14] LABS: BASOPHILS % (AUTO) 0.1 % (0.0-2.0); EOSINOPHILS # (AUTO) 0.2 K/uL (0.0-0.4); HEMATOCRIT 27.1 % (36-48); HEMOGLOBIN 8.7 g/dL (12.0-16.0); LYMPHOCYTES # (AUTO) 2.3 K/uL (1.0-5.5); LYMPHOCYTES % (AUTO) 11.6 % (20.5-51.5); MEAN CORPUSCULAR HEMOGLOBIN 32 pg (27-31); MEAN CORPUSCULAR HGB CONC 32 % (32-36); MEAN CORPUSCULAR VOLUME 100 fL (79.0-98.0); MONOCYTES # (AUTO) 0.9 K/uL (0.0-1.0); MONOCYTES % (AUTO) 4.7 % (1.7-9.3); NEUTROPHILS # (AUTO) 16.2 K/uL (1.8-7.7); NEUTROPHILS % (AUTO) 82.6 % (40.0-70.0); PLATELET COUNT (AUTO) 338 K/uL (130-430); RED BLOOD CELL COUNT(AUTO) 2.72 MIL/uL (4.2-6.2); RED CELL DISTRIBUTION WIDTH 16.1 % (9.0-15.0); WHITE BLOOD COUNT (AUTO) 19.7 K/uL (4.8-10.8)
[2023-02-28 05:44] LABS: ALANINE AMINOTRANSFERASE 13 U/L (12-78); ALBUMIN 1.3 g/dL (3.4-4.8); ANION GAP 8 (5-15); ASPARTATE AMINOTRANSFERASE 17 U/L (10-37); CALCIUM 8.1 mg/dL (8.4-11.0); CARBON DIOXIDE 28 mmol/L (23-29); CHLORIDE 101 mmol/L (98-107); CREATININE 0.62 mg/dL (0.55-1.30); PHOSPHORUS 4.5 mg/dL (2.7-4.5); POTASSIUM 3.2 mmol/L (3.5-5.1); SODIUM SERUM 137 mmol/L (136-145); TOTAL BILIRUBIN 0.2 mg/dL (0.0-1.0); TOTAL PROTEIN, SERUM 5.7 g/dL (6.4-8.3); UREA NITROGEN, BLOOD 17 mg/dL (8-21)
[2023-02-28 05:46] LABS: GLUCOSE 48 mg/dL (74-106)
[2023-02-28] MEDS: metroNIDAZOLE 250 mg/NS 50 ML IV SCH (05:54)
[2023-02-28] MEDS: DEXTROSE 50% JECT 50 ML DISP.SYRIN IVP PRN (05:55)
[2023-02-28] MEDS: HYDROcodone/ACETAMIN 10-325 MG TAB NG PRN ×2 (08:52→11:09)
[2023-02-28] MEDS: INSULIN GLARGINE 100 UNITS/ML, 10 ML VIAL SUBCUT SCH (09:00)
[2023-02-28] MEDS: MIDODRINE HCL 5 MG TABLET (PROAMATINE) NG SCH ×3 (09:00→20:22)
[2023-02-28] MEDS: GEMFIBROZIL 600 MG TABLET (LOPID) NG SCH (09:13)
[2023-02-28] MEDS: MEMANTINE HCL 5 MG TABLET NG SCH ×2 (09:13→20:22)
[2023-02-28] MEDS: ASPIRIN 81 MG TAB.CHEW NG SCH (09:13)
[2023-02-28] MEDS: EZETIMIBE 10 MG TABLET NG SCH (09:14)
[2023-02-28] MEDS: LEVOTHYROXINE SODIUM 0.05 MG TABLET NG SCH (09:14)
[2023-02-28] MEDS: GLIMEPIRIDE 2 MG TABLET NG SCH (09:14)
[2023-02-28] MEDS ORDERED: SPIRONOLACTONE 25 MG TABLET (ALDACTONE) PO ONE (10:15)
[2023-02-28] MEDS ORDERED: POTASSIUM CHLORIDE 40 MEQ, LIDOCAINE JECT 2% PF 100 MG 75 MG in NS 250 ML IV ONE (10:30)
[2023-02-28] MEDS: BALSAM PERU/CASTOR OIL 56.7 GM OINT...G. TP SCH (11:29)
[2023-02-28] MEDS: INSULIN REGULAR, HUMAN 100 UNITS/ML, 3 ML VIAL (humuLIN R) SUBCUT PRN (12:29)
[2023-02-28] MEDS: FLUCONAZOLE 100 mg/ NS 50 ML IV SCH (12:42)
[2023-02-28] MEDS ORDERED: MEROPENEM 500 MG in NS 50 ML IV SCH (14:00)
[2023-02-28] MEDS: MEROPENEM 1 GM IVPB PREMIX 50 ML IV SCH (14:57)
[2023-02-28 18:57] LABS: BILIRUBIN,URINE NEGATIVE (NEGATIVE); CLARITY/URINE CLEAR (CLEAR); COLOR,URINE YELLOW (YELLOW); GLUCOSE,URINE NEGATIVE (NEGATIVE); KETONES,URINE NEGATIVE (NEGATIVE); NITRITE, URINE NEGATIVE (NEGATIVE); PROTEIN URINE TRACE (NEGATIVE); UROBILINOGEN,URINE 0.2 (0.2-1.0)
[2023-02-28 19:05] LABS: BLOOD, URINE TRACE (NEGATIVE); LEUKOCYTE ESTERASE ,URINE 1+ (NEGATIVE); RBC,URINE 0-3 /HPF (0-3)
[2023-02-28 19:06] LABS: BACTERIA,URINE FEW /HPF (None Seen); FINE GRANULAR CASTS,URINE 0-10 /LPF (None Seen); MUCUS,URINE None Seen /LPF (None Seen); YEAST,URINE Few /HPF (None Seen)
[2023-03-01] VITALS (29 sets, daily range): BP systolic 99–177; PULSE 72–116; RESP 14–25; TEMP 98.1–99; O2SAT 95–100
[2023-03-01] MEDS: MEROPENEM 1 GM IVPB PREMIX 50 ML IV SCH ×2 (01:11→13:49)
[2023-03-01] MEDS: ACETYLCYSTEINE 10% 4 ML VIAL (RT) INH SCH ×6 (02:22→23:24)
[2023-03-01] MEDS: IPRATROPIUM BROM 0.5 MG/2.5 ML VIAL.NEB (ATROVENT) INH SCH ×6 (02:22→23:23)
[2023-03-01] MEDS: ALBUTEROL SULFATE 0.083% 2.5 MG/3 ML VIAL.NEB INH SCH ×6 (02:22→23:24)
[2023-03-01 05:22] LABS: BASOPHILS % (AUTO) 0.3 % (0.0-2.0); EOSINOPHILS # (AUTO) 0.1 K/uL (0.0-0.4); EOSINOPHILS % (AUTO) 0.7 % (0.0-4.0); HEMOGLOBIN 8.2 g/dL (12.0-16.0); LYMPHOCYTES # (AUTO) 1.4 K/uL (1.0-5.5); LYMPHOCYTES % (AUTO) 8.3 % (20.5-51.5); MEAN CORPUSCULAR HEMOGLOBIN 32 pg (27-31); MEAN CORPUSCULAR HGB CONC 33 % (32-36); MEAN CORPUSCULAR VOLUME 99 fL (79.0-98.0); MONOCYTES # (AUTO) 0.8 K/uL (0.0-1.0); MONOCYTES % (AUTO) 4.9 % (1.7-9.3); NEUTROPHILS # (AUTO) 14.1 K/uL (1.8-7.7); NEUTROPHILS % (AUTO) 85.8 % (40.0-70.0); PLATELET COUNT (AUTO) 332 K/uL (130-430); RED BLOOD CELL COUNT(AUTO) 2.52 MIL/uL (4.2-6.2); RED CELL DISTRIBUTION WIDTH 15.9 % (9.0-15.0); WHITE BLOOD COUNT (AUTO) 16.4 K/uL (4.8-10.8)
[2023-03-01 06:19] LABS: ANION GAP 6 (5-15); CARBON DIOXIDE 31 mmol/L (23-29); CHLORIDE 104 mmol/L (98-107); GLUCOSE 156 mg/dL (74-106); POTASSIUM 4.8 mmol/L (3.5-5.1); SODIUM SERUM 141 mmol/L (136-145); UREA NITROGEN, BLOOD 18 mg/dL (8-21)
[2023-03-01] MEDS: MEMANTINE HCL 5 MG TABLET NG SCH ×2 (08:55→20:14)
[2023-03-01] MEDS: INSULIN REGULAR, HUMAN 100 UNITS/ML, 3 ML VIAL (humuLIN R) SUBCUT PRN ×2 (08:55→12:41)
[2023-03-01] MEDS: ASPIRIN 81 MG TAB.CHEW NG SCH (08:55)
[2023-03-01] MEDS: MIDODRINE HCL 5 MG TABLET (PROAMATINE) NG SCH (08:57)
[2023-03-01] MEDS: LEVOTHYROXINE SODIUM 0.05 MG TABLET NG SCH (08:57)
[2023-03-01] MEDS: BALSAM PERU/CASTOR OIL 56.7 GM OINT...G. TP SCH (08:58)
[2023-03-01] MEDS ORDERED: HYDROcodone/ACETAMIN 5-325 MG TAB (NORCO/ VICODIN) NG PRN (15:45)
[2023-03-02] VITALS (26 sets, daily range): BP systolic 92–157; PULSE 95–108; RESP 16–31; TEMP 96.8–98.6; O2SAT 93–100
[2023-03-02] MEDS: MEROPENEM 1 GM IVPB PREMIX 50 ML IV SCH ×2 (01:17→15:32)
[2023-03-02] MEDS: IPRATROPIUM BROM 0.5 MG/2.5 ML VIAL.NEB (ATROVENT) INH SCH ×6 (03:14→23:00)
[2023-03-02] MEDS: ACETYLCYSTEINE 10% 4 ML VIAL (RT) INH SCH ×6 (03:14→23:00)
[2023-03-02] MEDS: ALBUTEROL SULFATE 0.083% 2.5 MG/3 ML VIAL.NEB INH SCH ×6 (03:14→23:00)
[2023-03-02 05:15] LABS: BASOPHILS % (AUTO) 0.2 % (0.0-2.0); EOSINOPHILS # (AUTO) 0.1 K/uL (0.0-0.4); EOSINOPHILS % (AUTO) 0.8 % (0.0-4.0); HEMATOCRIT 26.4 % (36-48); HEMOGLOBIN 8.6 g/dL (12.0-16.0); LYMPHOCYTES # (AUTO) 1.5 K/uL (1.0-5.5); LYMPHOCYTES % (AUTO) 9.7 % (20.5-51.5); MEAN CORPUSCULAR HEMOGLOBIN 32 pg (27-31); MEAN CORPUSCULAR HGB CONC 33 % (32-36); MEAN CORPUSCULAR VOLUME 100 fL (79.0-98.0); MONOCYTES # (AUTO) 0.8 K/uL (0.0-1.0); MONOCYTES % (AUTO) 5.2 % (1.7-9.3); NEUTROPHILS # (AUTO) 12.6 K/uL (1.8-7.7); NEUTROPHILS % (AUTO) 84.1 % (40.0-70.0); PLATELET COUNT (AUTO) 375 K/uL (130-430); RED BLOOD CELL COUNT(AUTO) 2.65 MIL/uL (4.2-6.2)
[2023-03-02 05:26] LABS: ALANINE AMINOTRANSFERASE 13 U/L (12-78); ALBUMIN 1.3 g/dL (3.4-4.8); ANION GAP 5 (5-15); ASPARTATE AMINOTRANSFERASE 16 U/L (10-37); CALCIUM 9.4 mg/dL (8.4-11.0); CARBON DIOXIDE 34 mmol/L (23-29); CHLORIDE 102 mmol/L (98-107); CREATININE 0.69 mg/dL (0.55-1.30); GLUCOSE 92 mg/dL (74-106); POTASSIUM 4.2 mmol/L (3.5-5.1); SODIUM SERUM 141 mmol/L (136-145); TOTAL BILIRUBIN 0.2 mg/dL (0.0-1.0); UREA NITROGEN, BLOOD 30 mg/dL (8-21)
[2023-03-02] MEDS ORDERED: FUROSEMIDE 20 MG/2 ML VIAL IVP ONE (07:45)
[2023-03-02] MEDS: MEMANTINE HCL 5 MG TABLET NG SCH ×2 (08:59→20:01)
[2023-03-02] MEDS: ASPIRIN 81 MG TAB.CHEW NG SCH (08:59)
[2023-03-02] MEDS: LEVOTHYROXINE SODIUM 0.05 MG TABLET NG SCH (09:00)
[2023-03-02] MEDS: BALSAM PERU/CASTOR OIL 56.7 GM OINT...G. TP SCH (09:01)
[2023-03-02] MEDS ORDERED: FLUCONAZOLE 100 mg/ NS 50 ML IV SCH (11:00)
[2023-03-02] MEDS: INSULIN REGULAR, HUMAN 100 UNITS/ML, 3 ML VIAL (humuLIN R) SUBCUT PRN (13:18)
[2023-03-03] VITALS (11 sets, daily range): BP systolic 113–134; PULSE 97–99; RESP 15–22; TEMP 97.9–98.2; O2SAT 95–99
[2023-03-03] MEDS: MEROPENEM 1 GM IVPB PREMIX 50 ML IV SCH (02:00)
[2023-03-03] MEDS: IPRATROPIUM BROM 0.5 MG/2.5 ML VIAL.NEB (ATROVENT) INH SCH ×3 (02:15→11:10)
[2023-03-03] MEDS: ACETYLCYSTEINE 10% 4 ML VIAL (RT) INH SCH ×3 (02:15→11:10)
[2023-03-03] MEDS: ALBUTEROL SULFATE 0.083% 2.5 MG/3 ML VIAL.NEB INH SCH ×3 (02:15→11:10)
[2023-03-03 06:40] LABS: BASOPHILS % (AUTO) 0.2 % (0.0-2.0); EOSINOPHILS # (AUTO) 0.1 K/uL (0.0-0.4); HEMATOCRIT 27.3 % (36-48); HEMOGLOBIN 8.8 g/dL (12.0-16.0); LYMPHOCYTES # (AUTO) 1.3 K/uL (1.0-5.5); LYMPHOCYTES % (AUTO) 9.1 % (20.5-51.5); MEAN CORPUSCULAR HEMOGLOBIN 32 pg (27-31); MEAN CORPUSCULAR HGB CONC 32 % (32-36); MEAN CORPUSCULAR VOLUME 99 fL (79.0-98.0); MONOCYTES # (AUTO) 0.8 K/uL (0.0-1.0); MONOCYTES % (AUTO) 5.6 % (1.7-9.3); NEUTROPHILS # (AUTO) 11.9 K/uL (1.8-7.7); NEUTROPHILS % (AUTO) 84.1 % (40.0-70.0); PLATELET COUNT (AUTO) 392 K/uL (130-430); RED BLOOD CELL COUNT(AUTO) 2.75 MIL/uL (4.2-6.2); RED CELL DISTRIBUTION WIDTH 16.3 % (9.0-15.0); WHITE BLOOD COUNT (AUTO) 14.1 K/uL (4.8-10.8)
[2023-03-03 06:58] LABS: ANION GAP 1 (5-15); CALCIUM 9.1 mg/dL (8.4-11.0); CARBON DIOXIDE 37 mmol/L (23-29); CHLORIDE 102 mmol/L (98-107); GLUCOSE 195 mg/dL (74-106); POTASSIUM 4.6 mmol/L (3.5-5.1); SODIUM SERUM 140 mmol/L (136-145); UREA NITROGEN, BLOOD 26 mg/dL (8-21)
[2023-03-03] MEDS: LEVOTHYROXINE SODIUM 0.05 MG TABLET NG SCH (08:18)
[2023-03-03] MEDS: ASPIRIN 81 MG TAB.CHEW NG SCH (08:18)
[2023-03-03] MEDS: MEMANTINE HCL 5 MG TABLET NG SCH (08:18)
[2023-03-03] MEDS: INSULIN REGULAR, HUMAN 100 UNITS/ML, 3 ML VIAL (humuLIN R) SUBCUT PRN (08:26)
[2023-03-03] MEDS: BALSAM PERU/CASTOR OIL 56.7 GM OINT...G. TP SCH (09:33)
[2023-03-03] MEDS ORDERED: INSU100V SUBCUT (10:00)
== END 2023-03-03 12:25 | disposition hospice, home (50) | DRG 871 ==
LOC: SED 17:35 → SMU 21:36 → STU 02-26 22:42 → SIC 02-26 22:59
PROVIDERS: ADMIT Preventive Medicine Preventive Medicine/Occupational Environmental Medicine; ATTEND Specialist
PROC: 0DB78ZX Excision of Stomach, Pylorus, Via Natural or Artificial Opening Endoscopic, Diagnostic (ICD-10-PCS; 2023-02-24)
PROC: 0DH63UZ Insertion of Feeding Device into Stomach, Percutaneous Approach (ICD-10-PCS; principal; 2023-02-24 10:00)
PROC: 0DB68ZX Excision of Stomach, Via Natural or Artificial Opening Endoscopic, Diagnostic (ICD-10-PCS; 2023-02-24 10:00)
DX: A41.9 Sepsis, unspecified organism (principal); J18.9 Pneumonia, unspecified organism; J69.0 Pneumonitis due to inhalation of food and vomit; J96.00 Acute respiratory failure, unspecified whether with hypoxia or hypercapnia; N39.0 Urinary tract infection, site not specified; N17.9 Acute kidney failure, unspecified; J44.0 Chronic obstructive pulmonary disease with (acute) lower respiratory infection; G93.40 Encephalopathy, unspecified; Z68.1 Body mass index [BMI] 19.9 or less, adult; E44.0 Moderate protein-calorie malnutrition; D64.9 Anemia, unspecified; D69.6 Thrombocytopenia, unspecified; E11.22 Type 2 diabetes mellitus with diabetic chronic kidney disease; N18.32 Chronic kidney disease, stage 3b; K29.70 Gastritis, unspecified, without bleeding; K29.80 Duodenitis without bleeding; R13.10 Dysphagia, unspecified; E87.8 Other disorders of electrolyte and fluid balance, not elsewhere classified; E86.0 Dehydration; I12.9 Hypertensive chronic kidney disease with stage 1 through stage 4 chronic kidney disease, or unspecified chronic kidney disease; F03.90 Unspecified dementia, unspecified severity, without behavioral disturbance, psychotic disturbance, mood disturbance, and anxiety; E83.51 Hypocalcemia; E87.6 Hypokalemia; E83.41 Hypermagnesemia; E11.65 Type 2 diabetes mellitus with hyperglycemia; E78.5 Hyperlipidemia, unspecified; E83.39 Other disorders of phosphorus metabolism; Z88.0 Allergy status to penicillin; Z86.73 Personal history of transient ischemic attack (TIA), and cerebral infarction without residual deficits; Z87.891 Personal history of nicotine dependence; Z79.899 Other long term (current) drug therapy
CPT/HCPCS: 36415; 36600; 43239; 43246; 71045; 80048; 80053; 81000; 82803; 82962; 83037; 83605; 83735; 83880; 84100; 85007; 85025; 85027; 85610-TC; 85651-TC; 85730-TC; 87040; 87070-TC; 87081; 87086; 87205-TC; 92610-GN; 94640; 94660; 94760; 96361; 96365; 96375; 97110-GP; 97530-GP; 99285; J0692; J0696; J1450; J1815; J1940; J1956; J2060; J2185; J2250; J2930; J3010; J3480; J3490; J7050; J7060; J7608